=== PATIENT | female | born 1980 | race Caucasian/White ===

== ENCOUNTER 2018-12-12 15:49 | Emergency (ER) | payer OTHER ==
[~2018-12-12] VITALS: Ht 177.8 cm; Wt 59.9 kg
[~2018-12-12 15:49] MED LIST: ACET500 PO; ALBIPROI INH; ALBU.083IS IH; ALBU90OI INH; AZIT250 PO; AZIT500 PO; Bactrim Ds Tab1 EACH PO; CEPH500 PO; CIPR500 PO; CLIN300 PO; CLON.5 PO; CLON1 PO; CODACE30 PO; CODACEE120 PO; CODGUAEL PO; CYCL10 PO; DOXY100 PO; FAMO20 PO; FLUT110OIA IH; GABA300; GUAI100SY; HYDACE5 PO; HYDGUAL120 PO; IBUP200 PO; KETO10 PO; MALOXICAN; MELO7.5 PO; MULVITMINE; NAPR500 PO; NAPR550 PO; ONDA8 PO; OXYACE5T PO; OXYC10ER PO; OXYC5 PO; PRED20 PO; PROACE100 PO; PROM25 PO; RXCODACET PO; RXNAPNA550 PO; RXPROACE PO; RXTRAM50 PO; Roxicodone5 MG PO; SERT100 PO; SERT50 PO; SULTRIDS PO; TRAM50 PO; Ultram50 MG PO; [UNRECOGNIZED DRUG - OTHER]
[2018-12-12] MEDS ORDERED: CEPH500 PO (16:25)
[2018-12-12] MEDS ORDERED: Bactrim Ds Tab1 EACH PO (16:25)
== END 2018-12-12 16:43 | disposition home or self-care (01) ==
LOC: ER 15:49
DX: L02.31 Cutaneous abscess of buttock (principal); Z88.5 Allergy status to narcotic agent; Z88.0 Allergy status to penicillin; Z88.8 Allergy status to other drugs, medicaments and biological substances; F17.210 Nicotine dependence, cigarettes, uncomplicated
CPT/HCPCS: 99282

== ENCOUNTER 2019-05-08 14:56 | Emergency (ER) | payer OTHER ==
[~2019-05-08] VITALS: Ht 175.3 cm; Wt 65.3 kg
[2019-05-08] MEDS ORDERED: Cymbalta30 MG PO (15:00)
[2019-05-08] MEDS ORDERED: RIZATRIPTAN5 MG PO (15:01)
[2019-05-08] MEDS ORDERED: Inderal 20 mg T20 MG PO (15:01)
== END 2019-05-08 16:07 | disposition home or self-care (01) ==
LOC: ER 14:56
DX: S61.011A Laceration without foreign body of right thumb without damage to nail, initial encounter (principal); F17.210 Nicotine dependence, cigarettes, uncomplicated; Z88.5 Allergy status to narcotic agent; Z88.0 Allergy status to penicillin; Z79.899 Other long term (current) drug therapy; W26.8XXA Contact with other sharp object(s), not elsewhere classified, initial encounter
CPT/HCPCS: 12001; 99282-25

== ENCOUNTER → 2021-11-04 | Outpatient (CLI) | payer OTHER ==
[~2021-11-04] MED LIST changes: +Cymbalta30 MG PO; +Inderal 20 mg T20 MG PO; +RIZATRIPTAN5 MG PO
[2021-11-04 19:24] LABS: Amorphous Heavy (0-Heavy); Bacteria Few /hpf; Calcium Oxalate Crystals Few /hpf; Red Blood Cells, Urine 0-2 /hpf (0-2); Squamous Epithelial Cells Few /hpf (Few)
== END | disposition home or self-care (01) ==
LOC: LAB 16:40 → LAB SHORT 16:40
PROVIDERS: Student in an Organized Health Care Education/Training Program
DX: R10.9 Unspecified abdominal pain (principal)
CPT/HCPCS: 81015

== ENCOUNTER → 2021-12-08 | Outpatient (CLI) | payer OTHER ==
[2021-12-08 14:23] LABS: Source, Urine Clean Catch
[2021-12-08 15:27] LABS: Appearance, Urine Hazy (Clear); Blood, Urine 1+ (Neg); Color, Urine Yellow (P-Yellow); Glucose Qualitative, Urine Neg (Neg); Ketones, Urine 1+ (Neg); Leukocyte Esterase, Urine 2+ (Neg); Nitrite, Urine Neg (Neg); Protein, Urine 2+ (Neg); Urobilinogen, Urine 1+ (Normal)
[2021-12-08 16:00] LABS: Bilirubin, Urine 1+ (Neg)
[2021-12-08 16:01] LABS: Bacteria Mod /hpf; Squamous Epithelial Cells Mod /hpf (Few)
[2021-12-08 16:02] LABS: Hyaline Casts 0-2 /lpf (0-2); Mucus Mod (0-Heavy)
== END | disposition home or self-care (01) ==
LOC: LAB 14:21 → LAB SHORT 14:21
PROVIDERS: Family Medicine
DX: R10.33 Periumbilical pain (principal)
CPT/HCPCS: 81001; 87086

== ENCOUNTER 2022-04-07 14:06 | Emergency (ER) | payer OTHER ==
[~2022-04-07] VITALS: Ht 177.8 cm; Wt 61.7 kg
== END 2022-04-07 14:16 | disposition home or self-care (01) ==
LOC: ER 14:06
DX: R50.9 Fever, unspecified (principal); F17.210 Nicotine dependence, cigarettes, uncomplicated; Z88.0 Allergy status to penicillin; Z88.5 Allergy status to narcotic agent; Z88.8 Allergy status to other drugs, medicaments and biological substances; Z79.899 Other long term (current) drug therapy
CPT/HCPCS: 99283

== ENCOUNTER 2022-07-17 15:30 | Emergency (ER) | payer OTHER ==
[~2022-07-17] VITALS: Ht 177.8 cm; Wt 68.0 kg
== END 2022-07-17 18:40 | disposition home or self-care (01) ==
LOC: ER 15:30
DX: M54.2 Cervicalgia (principal); M54.9 Dorsalgia, unspecified; F17.210 Nicotine dependence, cigarettes, uncomplicated; V49.20XA Unspecified car occupant injured in collision with unspecified motor vehicles in nontraffic accident, initial encounter; Z79.899 Other long term (current) drug therapy; Z88.0 Allergy status to penicillin; Z88.5 Allergy status to narcotic agent; Z88.8 Allergy status to other drugs, medicaments and biological substances
CPT/HCPCS: 72070; 72100; 96372; 99284-25; J1885

== ENCOUNTER 2022-07-30 00:44 | Day surgery (SDC) | payer OTHER ==
[~2022-07-30 00:44] MED LIST changes: +IBUP800 PO; +KETOROLAC TROME10 M2 PO; +LACT PO; +SULFAMETHOXAZO1 EAC1 PO; +Vancomycin1 GM/2501 IV
[2022-07-30 15:05] VITALS: BP 109/68
[2022-07-30] MEDS ORDERED: BACTRIM DS TAB1 EAC1 PO (15:08)
[2022-07-30] MEDS ORDERED: CUBICIN RF500 M1 IV (15:09)
== END 2022-07-30 15:35 | disposition home or self-care (01) ==
LOC: ATC 00:44
DX: L03.116 Cellulitis of left lower limb (principal)
CPT/HCPCS: 96365; C1751; J0878; J3370

== ENCOUNTER 2022-07-31 01:17 | Day surgery (SDC) | payer OTHER ==
[~2022-07-31 01:17] MED LIST changes: +BACTRIM DS TAB1 EAC1 PO; +CUBICIN RF500 M1 IV
[2022-07-31 14:35] VITALS: BP 118/85
== END 2022-07-31 15:07 | disposition home or self-care (01) ==
LOC: ATC 01:17
DX: L03.116 Cellulitis of left lower limb (principal); F15.10 Other stimulant abuse, uncomplicated; F17.200 Nicotine dependence, unspecified, uncomplicated; Z88.6 Allergy status to analgesic agent; Z88.8 Allergy status to other drugs, medicaments and biological substances; Z88.0 Allergy status to penicillin
CPT/HCPCS: 96365; J0878

== ENCOUNTER 2022-08-01 00:13 | Day surgery (SDC) | payer OTHER ==
[2022-08-01 13:54] VITALS: BP 109/82
== END 2022-08-01 14:08 | disposition home or self-care (01) ==
LOC: ATC 00:13
DX: L03.116 Cellulitis of left lower limb (principal); Z86.14 Personal history of Methicillin resistant Staphylococcus aureus infection
CPT/HCPCS: 96365; J0878

== ENCOUNTER 2022-08-03 00:25 | Day surgery (SDC) | payer OTHER ==
[2022-08-03 13:58] VITALS: BP 134/80
== END 2022-08-03 14:23 | disposition home or self-care (01) ==
LOC: ATC 00:25
DX: L03.116 Cellulitis of left lower limb (principal); Z86.14 Personal history of Methicillin resistant Staphylococcus aureus infection
CPT/HCPCS: 96365; J0878

== ENCOUNTER 2022-08-04 01:44 | Day surgery (SDC) | payer OTHER ==
[2022-08-04 14:25] VITALS: BP 113/84
== END 2022-08-04 14:50 | disposition home or self-care (01) ==
LOC: ATC 01:44
DX: L03.116 Cellulitis of left lower limb (principal); F17.210 Nicotine dependence, cigarettes, uncomplicated; Z88.6 Allergy status to analgesic agent
CPT/HCPCS: 96365; J0878

== ENCOUNTER 2022-08-07 03:28 | Emergency (ER) | payer OTHER ==
[~2022-08-07] VITALS: Ht 177.8 cm; Wt 64.9 kg
[2022-08-07 06:30] VITALS: BP 100/72
== END 2022-08-07 06:54 | disposition home or self-care (01) ==
LOC: ER 03:28
DX: I80.8 Phlebitis and thrombophlebitis of other sites (principal); F17.210 Nicotine dependence, cigarettes, uncomplicated; Z88.0 Allergy status to penicillin; Z88.5 Allergy status to narcotic agent; Z91.030 Bee allergy status; Z79.899 Other long term (current) drug therapy
CPT/HCPCS: 36415; 85379; 93971; 99284-25; A9270

== ENCOUNTER 2023-09-27 17:43 | Emergency (ER) | payer OTHER ==
[~2023-09-27] VITALS: Ht 177.8 cm; Wt 59.0 kg
[2023-09-27 18:30] LABS: BASOPHILS ABSOLUTE AUTO 0.01 K/mm3 (0.00-0.23); BASOPHILS PERCENT AUTO 0 % (0-2); EOSINOPHILS ABSOLUTE AUTO 0.01 K/mm3 (0.00-0.68); EOSINOPHILS PERCENT AUTO 0 % (0-6); Hematocrit 43.2 % (33.0-51.0); Hemoglobin 14.5 g/dL (11.5-16.0); IMMATURE GRAN ABSOLUTE AUTO 0.03 K/mm3 (0.00-0.10); IMMATURE GRAN PERCENT AUTO 0 % (0-1); LYMPHOCYTES ABSOLUTE AUTO 0.61 K/mm3 (0.84-5.20); LYMPHOCYTES PERCENT AUTO 6 % (21-46); MONOCYTES PERCENT AUTO 2 % (4-13); Mean Corpuscular HGB 29.1 pg (26.0-34.0); Mean Corpuscular HGB Conc 33.6 g/dL (31.5-36.5); Mean Corpuscular Volume 87 fL (80-100); Mean Platelet Volume 10.1 fL (9.1-12.4); NEUTROPHILS ABSOLUTE AUTO 8.66 K/mm3 (1.96-9.15); NEUTROPHILS PERCENT AUTO 91 % (41-73); Platelet Count 243 K/mm3 (150-400); RDW Coefficient Variation 12.9 % (11.7-14.2); RDW Standard Deviation 40.4 fL (35.1-46.3); Red Blood Cell Count 4.98 M/mm3 (3.80-5.20); White Blood Cell Count 9.52 K/mm3 (4.00-11.30)
[2023-09-27 19:08] LABS: Albumin, Blood 3.7 g/dL (3.4-5.0); Albumin/Globulin Ratio 0.9 (0.8-1.8); Bilirubin, Total 0.7 mg/dL (0.1-1.0); Bun/Creatinine Ratio 18.8 (12.0-20.0); Calcium, Blood 8.8 mg/dL (8.5-10.1); Creatinine, Blood 0.74 mg/dL (0.40-1.00); Globulin, Blood 3.9 g/dL (2.2-4.0); Potassium, Blood 4.1 mmol/L (3.5-5.5); Total Protein, Blood 7.6 g/dL (6.4-8.2)
[2023-09-27] MEDS ORDERED: Prochlorperazine Edisylate 10 mg Vial IV ONE (20:45)
[2023-09-27] MEDS ORDERED: NS 1,000 ML IV SCH (20:45)
[2023-09-27] MEDS ORDERED: Pantoprazole Sodium 40 MG Injection IV ONE (20:45)
[2023-09-27] MEDS ORDERED: ONDA4ODT MM (21:43)
[2023-09-27] MEDS ORDERED: PANT40 PO (21:43)
[2023-09-27] MEDS ORDERED: RX Prepack 2 Tabs Ondansetron ODT 4MG UD ONE (21:45)
[2023-09-27 22:00] VITALS: BP 105/76
== END 2023-09-27 22:33 | disposition home or self-care (01) ==
LOC: ER 17:43
PROVIDERS: Emergency Medicine
DX: K21.9 Gastro-esophageal reflux disease without esophagitis (principal); F17.210 Nicotine dependence, cigarettes, uncomplicated; Z88.0 Allergy status to penicillin; Z88.5 Allergy status to narcotic agent; Z88.8 Allergy status to other drugs, medicaments and biological substances; Z91.030 Bee allergy status
CPT/HCPCS: 71046; 80053; 84484; 85025; 93005; 93010; 96361; 96374; 96375; 99285-25; A9270; C9113; J0780; J7030

== ENCOUNTER 2025-04-04 14:27 | Emergency (ER) | payer OTHER ==
[~2025-04-04] VITALS: Ht 177.8 cm; Wt 64.0 kg
[~2025-04-04 14:27] MED LIST changes: +ONDA4ODT MM; +PANT40 PO
[2025-04-04 15:51] LABS: BASOPHILS ABSOLUTE AUTO 0.05 K/mm3 (0.00-0.23); BASOPHILS PERCENT AUTO 1 % (0-2); EOSINOPHILS ABSOLUTE AUTO 0.07 K/mm3 (0.00-0.68); EOSINOPHILS PERCENT AUTO 1 % (0-6); Hematocrit 44.0 % (33.0-51.0); Hemoglobin 15.1 g/dL (11.5-16.0); IMMATURE GRAN ABSOLUTE AUTO 0.05 K/mm3 (0.00-0.10); IMMATURE GRAN PERCENT AUTO 1 % (0-1); LYMPHOCYTES ABSOLUTE AUTO 2.85 K/mm3 (0.84-5.20); LYMPHOCYTES PERCENT AUTO 45 % (21-46); MONOCYTES ABSOLUTE AUTO 0.49 K/mm3 (0.16-1.47); MONOCYTES PERCENT AUTO 8 % (4-13); Mean Corpuscular HGB Conc 34.3 g/dL (31.5-36.5); Mean Corpuscular Volume 85 fL (80-100); NEUTROPHILS ABSOLUTE AUTO 2.87 K/mm3 (1.96-9.15); NEUTROPHILS PERCENT AUTO 45 % (41-73); NRBC ABSOLUTE 0.00 K/mm3 (0.00-0.02); NRBC Auto 0.0 /100 WBC (0.0-0.2); Platelet Count 296 K/mm3 (150-400); RDW Coefficient Variation 12.5 % (11.7-14.2); RDW Standard Deviation 38.5 fL (35.1-46.3)
[2025-04-04 16:08] LABS: Alanine Aminotransfer (ALT/SGP 51.0 U/L (12-78); Albumin, Blood 3.4 g/dL (3.4-5.0); Albumin/Globulin Ratio 0.9 (0.8-1.8); Anion Gap 9.0 mmol/L (3-11); Aspartate Aminotrans (AST/SGOT 34.0 U/L (12-37); Bilirubin, Total 0.5 mg/dL (0.1-1.0); Blood Urea Nitrogen 11.0 mg/dL (8-24); CO2, Blood 22.0 mmol/L (21-32); Calcium, Blood 8.8 mg/dL (8.5-10.1); Chloride, Blood 107.0 mmol/L (98-108); Creatinine, Blood 0.7 mg/dL (0.40-1.00); Globulin, Blood 3.7 g/dL (2.2-4.0); Glucose, Blood 82.0 mg/dL (70-99); Potassium, Blood 4.3 mmol/L (3.5-5.5); Sodium, Blood 134.0 mmol/L (136-145); Total Protein, Blood 7.1 g/dL (6.4-8.2)
[2025-04-04] MEDS ORDERED: Ondansetron HCl 2 MG / ML 2ML Vial IV ONE (17:00)
[2025-04-04] MEDS ORDERED: Morphine Sulfate 4 MG/1 ML Injection IV ONE (17:15)
[2025-04-04] MEDS ORDERED: NS 1,000 ML IV SCH (17:25)
[2025-04-04 18:44] LABS: Source, Urine Clean Catch
[2025-04-04 19:00] LABS: Bilirubin, Urine Neg (Neg); Color, Urine Yellow (P-Yellow); Glucose Qualitative, Urine Neg (Neg); Ketones, Urine Neg (Neg); Leukocyte Esterase, Urine 2+ (Neg); Protein, Urine Neg (Neg); Specific Gravity, Urine 1.015 (1.003-1.022); Urobilinogen, Urine NORM (Normal)
[2025-04-04 19:10] LABS: Red Blood Cells, Urine 0-2 /hpf (0-2); Trichomonas Few /hpf
[2025-04-04] MEDS ORDERED: Ketorolac Tromethamine 30mg Vial IV ONE (19:35)
[2025-04-04] MEDS ORDERED: CEPH500 PO (20:05)
[2025-04-04] MEDS ORDERED: ONDA4ODT MM (20:05)
[2025-04-04] MEDS ORDERED: IBUP600 PO (20:05)
[2025-04-04] MEDS ORDERED: Magnesium Citr296 ML PO (20:09)
[2025-04-04 20:31] VITALS: BP 95/80
== END 2025-04-04 20:30 | disposition home or self-care (01) ==
LOC: ER 14:27
PROVIDERS: Physician Assistant
DX: R10.9 Unspecified abdominal pain (principal); R11.2 Nausea with vomiting, unspecified; F17.210 Nicotine dependence, cigarettes, uncomplicated; Z88.5 Allergy status to narcotic agent; Z88.0 Allergy status to penicillin; Z91.030 Bee allergy status; Z88.6 Allergy status to analgesic agent; Z79.899 Other long term (current) drug therapy
CPT/HCPCS: 71046; 74177; 76705; 80053; 81001; 83690; 84484; 85025; 93005; 93010; 96374-59; 96375; 99284-25; J1885; J2270; J2405; J7030; Q9967